=== PATIENT | male | born 1945 | race Caucasian/White ===

== ENCOUNTER 2025-01-28 00:46 | Inpatient (IN) | payer OTHER, BC ==
[~2025-01-28] VITALS: Ht 175.3 cm; Wt 79.8 kg
[2025-01-28] MEDS ORDERED: IV NS 0.9% 1,000 ML BAG IV ONE (02:00)
[2025-01-28 02:08] LABS: BASOPHILS % (AUTO) 0.2 % (0.0-2.0); EOSINOPHILS # (AUTO) 0.1 K/uL (0.0-0.7); EOSINOPHILS % (AUTO) 1.2 % (0.0-6.0); HEMATOCRIT 45 % (39-51); HEMOGLOBIN 15.2 g/dL (13.5-17.5); LYMPHOCYTES # (AUTO) 0.6 K/uL (0.8-4.8); LYMPHOCYTES % (AUTO) 7.5 % (20.0-44.0); MEAN CORPUSCULAR HEMOGLOBIN 30 PG (26.0-33.0); MEAN CORPUSCULAR HGB CONC 34 g/dl (31.0-36.0); MEAN CORPUSCULAR VOLUME 90 fL (80-96); MONOCYTES # (AUTO) 0.9 K/uL (0.1-1.30); MONOCYTES % (AUTO) 11.1 % (2.0-12.0); NEUTROPHILS # (AUTO) 6.4 K/uL (1.8-8.9); PLATELET COUNT (AUTO) 231 K/uL (150-450); RED BLOOD CELL COUNT(AUTO) 5.02 MIL/uL (4.5-6.0); RED CELL DISTRIBUTION WIDTH 13.1 % (11.5-15.0)
[2025-01-28] MEDS ORDERED: CEFTRIAXONE 1GM BAG (ER ONLY) 50 ML IV ONE (02:32)
[2025-01-28] MEDS ORDERED: FUROSEMIDE 20 MG/2 ML VIAL ONE (02:32)
[2025-01-28] MEDS ORDERED: AZITHROMYCIN 500 MG VIAL ONE (02:33)
[2025-01-28 02:38] LABS: CALCIUM, SERUM 8.9 mg/dL (8.5-10.1); CARBON DIOXIDE 28 mmol/L (21-32); CHLORIDE 100 mmol/L (98-107); GLUCOSE 104 mg/dL (74-106); POTASSIUM 3.9 mmol/L (3.5-5.1); SODIUM SERUM 135 mmol/L (136-145); UREA NITROGEN, BLOOD 13 mg/dL (7-18)
[2025-01-28] MEDS: CEFTRIAXONE 1GM BAG (ER ONLY) 50 ML IV ONE (02:41)
[2025-01-28 02:44] LABS: ALANINE AMINOTRANSFERASE 21 U/L (12-78); ALBUMIN 4.1 g/dL (3.4-5.0); ALKALINE PHOSPHATASE 114 U/L (46-116); ASPARTATE AMINOTRANSFERASE 20 U/L (15-37); BILIRUBIN,DIRECT 0.1 mg/dL (0.0-0.2); BILIRUBIN,TOTAL 0.5 mg/dL (0.2-1.0); INR 1.01 (0.91-1.10); PARTIAL THROMBOPLASTIN TIME 26.4 SEC (24.3-34.3); PROTHROMBIN TIME 10.7 SECS (9.2-11.1); TOTAL PROTEIN, SERUM 8.2 g/dL (6.4-8.2)
[2025-01-28 02:50] LABS: LACTIC ACID 0.9 mmol/L (0.4-2.0)
[2025-01-28] MEDS: AZITHROMYCIN 500 MG in IV D5W 250 ML IV ONE (02:53)
[2025-01-28] MEDS: FUROSEMIDE 20 MG/2 ML VIAL IV ONE (02:54)
[2025-01-28 03:32] LABS: APPEARANCE,URINE CLEAR (CLEAR); BILIRUBIN,URINE NEGATIVE (NEGATIVE); BLOOD, URINE TRACE-INTA Ery/uL (NEGATIVE); COLOR,URINE YELLOW (YELLOW); KETONES,URINE NEGATIVE (NEGATIVE); LEUKOCYTE ESTERASE ,URINE NEGATIVE (NEGATIVE); NITRITE, URINE NEGATIVE (NEGATIVE); PROTEIN,URINE NEGATIVE (NEGATIVE); UGLUCOSE NEGATIVE (NEGATIVE); UROBILINOGEN,URINE 0.2 EU/dL (0.2)
[2025-01-28 03:44] LABS: ADD URINE CULTURE NO; BACTERIA,URINE Rare /HPF (None Seen); RBC,URINE 0-2 /HPF (0-2); SQUAMOUS EPITHELIAL CELL,UR 0-2 /HPF (None Seen); WBC,URINE 0-2 /HPF (0-3)
[2025-01-28 04:00] VITALS: BP 128/86; TEMP 97.7; O2SAT 95
[2025-01-28] MEDS ORDERED: DONE5TAB34 PO (04:06)
[2025-01-28] MEDS ORDERED: ALBUTEROL FS 2.5 MG/0.5 ML VIAL.NEB NEB PRN (06:30)
[2025-01-28] MEDS ORDERED: hydrALAZINE HCL IV 20 MG VIAL IV PRN (06:30)
[2025-01-28] MEDS ORDERED: ONDANSETRON HCL/PF 4 MG/2 ML VIAL IVP PRN (06:30)
[2025-01-28] MEDS: IV NS 0.9% 1,000 ML IV SCH (06:33)
[2025-01-28] MEDS ORDERED: CEFEPIME 2 GM in IV NS 0.9% 50 ML IV ONE (08:00)
[2025-01-28] MEDS ORDERED: CEFEPIME 2 GM in IV NS 0.9% 50 ML IV SCH (08:00)
[2025-01-28 08:05] VITALS: BP 120/86; TEMP 97.7; O2SAT 95
[2025-01-28] MEDS: CEFEPIME 2 GM in IV D5W 100 ML IV SCH (08:37)
[2025-01-28] MEDS: DONEPEZIL 5 MG TABLET PO SCH (08:41)
[2025-01-28] MEDS: HEPARIN SODIUM, PORCINE 5000 UNITS/1 ML VIAL SQ SCH (08:42)
[2025-01-28] MEDS: VANCOMYCIN 1 GM in IV NS 0.9% 250 ML IV ONE (09:41)
[2025-01-28 16:00] VITALS: BP 132/68; TEMP 97.7; O2SAT 96
[2025-01-28 21:00] VITALS: BP 122/78; TEMP 98.2; O2SAT 94
[2025-01-28] MEDS: VANCOMYCIN 750 MG in IV D5W 250 ML IV SCH (21:04)
[2025-01-28] MEDS: ACETAMINOPHEN 325 MG TABLET PO PRN (21:36)
[2025-01-29] MEDS: MORPHINE SULFATE INJ 2 MG/ML DISP.SYRIN IV PRN (00:37)
[2025-01-29 05:00] VITALS: BP 137/83; TEMP 97.5; O2SAT 95
[2025-01-29 06:58] LABS: BASOPHILS % (AUTO) 0.3 % (0.0-2.0); EOSINOPHILS % (AUTO) 0.3 % (0.0-6.0); HEMATOCRIT 47 % (39-51); HEMOGLOBIN 15.7 g/dL (13.5-17.5); LYMPHOCYTES % (AUTO) 19.5 % (20.0-44.0); MEAN CORPUSCULAR HEMOGLOBIN 31 PG (26.0-33.0); MEAN CORPUSCULAR HGB CONC 34 g/dl (31.0-36.0); MEAN CORPUSCULAR VOLUME 91 fL (80-96); MONOCYTES # (AUTO) 0.9 K/uL (0.1-1.30); MONOCYTES % (AUTO) 19.2 % (2.0-12.0); NEUTROPHILS % (AUTO) 60.7 % (43.0-81.0); PLATELET COUNT (AUTO) 215 K/uL (150-450); RED BLOOD CELL COUNT(AUTO) 5.15 MIL/uL (4.5-6.0); RED CELL DISTRIBUTION WIDTH 13.1 % (11.5-15.0); WHITE BLOOD COUNT (AUTO) 4.9 K/uL (4.3-11.0)
[2025-01-29 07:16] LABS: ALBUMIN 4.1 g/dL (3.4-5.0); BILIRUBIN,TOTAL 0.6 mg/dL (0.2-1.0); CREATININE 1.1 mg/dL (0.6-1.3); PHOSPHORUS 3.9 mg/dL (2.5-4.9); POTASSIUM 3.8 mmol/L (3.5-5.1); TOTAL PROTEIN, SERUM 8.4 g/dL (6.4-8.2)
[2025-01-29 08:00] VITALS: BP 113/74; TEMP 98.1; O2SAT 96
[2025-01-29] MEDS ORDERED: IV NS 0.9% 1,000 ML IV PRN (09:41)
[2025-01-29 10:33] LABS: LYMPHOCYTES % (MANUAL) 19 % (16-48); MONOCYTES % (MANUAL) 19 % (0-11.0); NEUTROPHILS % (MANUAL) 62 (42-76); PLATELET ESTIMATE ADEQUATE
[2025-01-29 16:17] VITALS: BP 130/85; TEMP 97.5; O2SAT 98
[2025-01-29 19:42] VITALS: BP 132/78; TEMP 98.8; O2SAT 95
[2025-01-29 20:00] VITALS: BP 132/78; TEMP 98.8; O2SAT 95
[2025-01-30 04:00] VITALS: BP 127/73; TEMP 98.8; O2SAT 96
[2025-01-30 04:05] VITALS: BP 127/73; TEMP 98.8; O2SAT 96
[2025-01-30 06:40] LABS: CALCIUM, SERUM 8.6 mg/dL (8.5-10.1); CREATININE 0.9 mg/dL (0.6-1.3); POTASSIUM 3.8 mmol/L (3.5-5.1)
[2025-01-30 08:00] VITALS: BP 148/75; TEMP 98.6; O2SAT 97
== END 2025-01-30 16:05 | DRG 177 ==
LOC: ER 00:48 → TELE 02:48 → TELE1 03:25 → MEDSG1 09:33
PROVIDERS: ADMIT Nurse Practitioner Acute Care; ATTEND Nurse Practitioner Acute Care
DX: U07.1 COVID-19 (principal); G93.41 Metabolic encephalopathy; J12.82 Pneumonia due to coronavirus disease 2019; E87.1 Hypo-osmolality and hyponatremia; J91.8 Pleural effusion in other conditions classified elsewhere; J15.69 Pneumonia due to other Gram-negative bacteria; G30.9 Alzheimer's disease, unspecified; F02.80 Dementia in other diseases classified elsewhere, unspecified severity, without behavioral disturbance, psychotic disturbance, mood disturbance, and anxiety; N20.0 Calculus of kidney; I71.43 Infrarenal abdominal aortic aneurysm, without rupture; K57.30 Diverticulosis of large intestine without perforation or abscess without bleeding; Z87.442 Personal history of urinary calculi
CPT/HCPCS: 36415; 71045-TC; 80048-TC; 80053-TC; 80076-TC; 80202-TC; 81001; 83605-TC; 83735-TC; 84100-TC; 84484-TC; 85025-TC; 85730-TC; 87040-TC; 87081-TC; 87086-TC; A4223; G0378; J0456; J0692; J0696; J1644; J1938; J2270; J3370; J3371; J7030; J7050; J7060